=== PATIENT | female | born 1950 | race Caucasian/White ===

== ENCOUNTER → 2017-06-30 | Outpatient (CLI) | payer OTHER ==
[2016-06-05 15:07] VITALS: BP 162/70
--- NOTE | 2017-06-30 13:46 | VAS ---
HISTORY: Extremity pain, swelling, and edema Study: Left lower extremity Doppler venous ultrasound. TECHNIQUE: Multiple elise scale and color flow Doppler images of the deep venous system were obtained of the left lower extremity. FINDINGS: The deep venous system of the left lower extremity evaluated from the level of the common femoral vei n through the popliteal vein. Normal color flow and augmentation can be observed. In addition, norm al compression is seen throughout the deep venous system. IMPRESSION: 1. Negative examination for DVT. Reported By:
== END ==
LOC: RAD 11:44
PROVIDERS: ATTEND Specialist
DX: I82.412 Acute embolism and thrombosis of left femoral vein (principal)
CPT/HCPCS: 93971